=== PATIENT | male | born 1955 | race Caucasian/White ===

== ENCOUNTER → 2017-04-27 | Outpatient (CLI) | payer OTHER ==
--- NOTE | 2017-04-27 16:41 | CT ---
HISTORY: Pulmonary disease. Study: CT chest without contrast Comparison: None. Technique: Multiple axial images of the chest were obtained from the thoracic inlet to the upper abdo men without the administration of IV contrast. MIP images were obtained. Dose reduction techniques in cluding Automated Exposure Control (AEC) and adjustment of mA and kV were utilized. Findings: The mediastinum does not demonstrate significant pathological lymphadenopathy. There is no paracardi al effusion observed. The thoracic aorta is normal in its contour without evidence for aneurysmal di latation. Nonspecific nodular pulmonary calcifications in a tracheal bronchial distribution. No suspicious pulm onary nodules, mass, pleural effusion, focal consolidation, or pneumothorax. The upper abdominal stru ctures are unremarkable. Mild degenerative changes of the spine. No aggressive osseous lesions. IMPRESSION: 1. Nonspecific nodular pulmonary calcification in a tracheal bronchial distribution. Differential di agnosis includes, but is not limited to: Pulmonary amyloidosis, sarcoidosis, old granulomatous diseas e, or other chronic lung disease. Recommend clinical/laboratory correlation. 2. No acute thoracic pathology. Reported By:
--- NOTE | 2017-04-27 16:47 | CT ---
HISTORY: Dementia. Study: CT brain without contrast Comparison: None. Technique: Multiple axial images of the brain were obtained from the skull base to the vertex without administra tion of IV contrast. Dose reduction techniques including Automated Exposure Control (AEC) and adjust ment of mA and kV were utilized. Findings: Age-related cortical atrophy and chronic small vessel ischemic changes. 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 Remote right frontal craniotomy changes . No acute intraparenchymal hemorrhage or mass can be identified. No extra-axial fluid collections a re seen. No alteration in the attenuation of the brain parenchyma can be identified to suggest acute or subacute ischemic change. The ventricular system is symmetric and nondilated. Remaining visuali zed osseous structures are intact. The visualized paranasal sinuses and mastoid air cells are clear. IMPRESSION: No acute intracranial pathology. Reported By:
== END ==
LOC: RAD 15:47
DX: J44.9 Chronic obstructive pulmonary disease, unspecified (principal); F03.90 Unspecified dementia, unspecified severity, without behavioral disturbance, psychotic disturbance, mood disturbance, and anxiety
CPT/HCPCS: 70450; 71250